=== PATIENT | male | born 1975 | race Two or more races ===

== ENCOUNTER → 2020-06-27 14:58 | Outpatient (BNVA) | payer MEDICARE, SELFPAY | PROVIDERS: PCP Internal Medicine; Visit Provider Nurse Practitioner Family | DX: Z13.89 Encounter for screening for other disorder (principal) | CPT/HCPCS: Q3014 ==

== ENCOUNTER → 2020-07-28 14:26 | Outpatient (BNVA) | payer MEDICARE, SELFPAY | PROVIDERS: PCP Internal Medicine; Visit Provider Nurse Practitioner Family | DX: Z13.89 Encounter for screening for other disorder (principal) | CPT/HCPCS: Q3014 ==

== ENCOUNTER → 2020-08-30 12:51 | Outpatient (BNVA) | payer MEDICARE, SELFPAY | PROVIDERS: Visit Provider Nurse Practitioner Family | DX: Z13.89 Encounter for screening for other disorder (principal) | CPT/HCPCS: Q3014 ==

== ENCOUNTER → 2020-10-31 12:53 | Outpatient (BNVA) | payer MEDICARE, MEDICAID, SELFPAY | PROVIDERS: PCP Internal Medicine; Visit Provider Nurse Practitioner Family | CPT/HCPCS: Q3014 ==

== ENCOUNTER 2020-11-23 11:29 | Outpatient (REF) | payer MEDICARE, MEDICAID, SELFPAY ==
[2020-11-23 12:45] LABS: Hemoglobin 17.5 g/dl (14.0-18.0); Mean Corpuscular HGB Conc 33.7 g/dl (31.0-36.0); Mean Corpuscular Hemoglobin 28.9 pg (27.0-33.0); Mean Corpuscular Volume 85.8 fL (80-98); Mean Platelet Volume 9.7 fL (9.4-12.4); Platelet Count 258 X10*3/uL (160-400); Red Blood Count 6.06 X10*6/uL (4.60-5.80); White Blood Count 5.9 X10*3/uL (4.8-10.8)
[2020-11-23 13:31] LABS: Alanine Aminotransferase 43 U/L (0-40); Albumin Level 4.6 g/dL (3.5-5.0); Alkaline Phosphatase 93 U/L (39-117); Anion Gap 13 (12-20); Aspartate Amino Transferase 24 U/L (5-37); Bilirubin Total 1.8 mg/dL (0.0-1.0); Blood Urea Nitrogen 13 mg/dL (9-16); Calcium 9.7 mg/dL (8.4-10.2); Carbon Dioxide 26 mmol/L (22-29); Chloride 106 mmol/L (96-108); Cholesterol 234 mg/dL; Estimated Glomerular Filt Rate > 60; Glucose Random 90 mg/dL (60-115); HDL Cholesterol 35 mg/dL; LDL Cholesterol Calculated 144 mg/dl; Potassium 4.1 mmol/L (3.3-5.1); Sodium 141 mmol/L (135-145); Total Protein 7.4 g/dL (6.5-8.0); Triglycerides 275 mg/dL
== END 2020-11-23 11:30 | disposition home or self-care (01) ==
LOC: HO.LAB 11:29
PROVIDERS: PCP Internal Medicine; Visit Provider Nurse Practitioner Family
DX: K21.9 Gastro-esophageal reflux disease without esophagitis (principal); I25.10 Atherosclerotic heart disease of native coronary artery without angina pectoris
CPT/HCPCS: 36415; 80053; 80061; 85027

== ENCOUNTER → 2020-12-20 14:41 | Outpatient (BNVA) | payer MEDICARE, MEDICAID, SELFPAY | PROVIDERS: PCP Internal Medicine; Referring Provider Internal Medicine; Visit Provider Internal Medicine | DX: R07.2 Precordial pain (principal); R94.31 Abnormal electrocardiogram [ECG] [EKG] | CPT/HCPCS: 93005; 99202 ==

== ENCOUNTER → 2020-12-27 10:57 | Outpatient (REF) | payer MEDICARE, MEDICAID, SELFPAY ==
--- NOTE | 2020-12-27 11:02 | CA_ITS ---
Acquisition Time: 2020-12-27 11:05:25 Total Exercise Time: 00:11:53 Test Indications: CP, ABN EKG Medications: SEE CHART Protocol: PRO Max HR: 166 BPM 94% of Pred: 176 BPM Max BP: 152/084 mmHG Max Work Load: 13.4 METS Exercise stress test with exercise 11 min 53 sec of Pro protocol, without anginal symptoms, with isolated PVC, with normotensive response to exercise, with nondiagnostic EKG for ischemia due to baseline abnormality. Echo images obtained by tech at rest and immediately post peak exercise, Definity contrast used. Test reviewed with Dr Coates. Referred By: Ever Coates Overread By: MARYELLEN HUITRON
== END ==
LOC: HO.CARD 10:57
PROVIDERS: Visit Provider Internal Medicine
DX: R07.2 Precordial pain (principal)
CPT/HCPCS: 93350; Q9957

== ENCOUNTER → 2021-02-27 13:55 | Outpatient (REF) | payer MEDICARE, MEDICAID, SELFPAY ==
--- NOTE | 2021-02-27 14:00 | CA_ITS ---
Transthoracic Echocardiogram Patient (Last, First, Middle): Trav Jones, Gender: Male Date of : 1975 Age: 45 Procedure Date: 02/27/2021 Procedure Type: Transthoracic Echocardiogram Location: OP Height: 175.26 cm Weight: 92.99 kg BSA: 2.09 m2 Heart Rate: bpm BP: 123 / 80 mmHg Flat Examiner: VH/CP Referring MD: Ever Coates MD Symptoms: R07.2 - Precordial pain Study Quality: Good ECG Rhythm: Sinus Conclusions: - The left ventricular systolic function is normal. The visually estimated ejection fraction is between 55-60%. - No obvious valvular pathology seen on this study. Findings Left Ventricle Normal left ventricular cavity size. There is normal left ventricular wall thickness. The left ventricular systolic function is normal. The visually estimated ejection fraction is between 55-60%. There is no evidence of regional wall motion abnormalities. Diastolic function is normal for age. E/E prime ratio is <8, consistent with normal filling pressures. Right Ventricle Normal right ventricular cavity size and systolic function. Atria Both atria are normal in size. There is lipomatous hypertrophy of the interatrial septum. Aortic Valve Normal aortic valve structure and function. There is no aortic valve stenosis. There is no aortic valve regurgitation. Mitral Valve The mitral valve appears normal. There is trace mitral valve regurgitation. There is no mitral valve stenosis. Pulmonic Valve The pulmonic valve was not well visualized. There is no pulmonic valve regurgitation. Tricuspid Valve Normal tricuspid valve structure. There is trace tricuspid valve regurgitation. The pulmonary artery systolic pressure is normal. Great Vessels The aortic annulus, sinuses of valsalva, and asc aorta are normal in size. Venous The inferior vena cava is normal in size and collapses greater than 50% with inspiration. Pericardium/Pleural There is no evidence of pericardial effusion. Prior Study Comparison No prior study available for comparison. Recommendations, Care & Conclusions No obvious valvular pathology seen on this study. Measurements 2D Linear Measurements IVSd: 0.92 0.6-0.9/0.6-1.0 cm LVIDd: 5.41 3.9-5.3/4.2-5.9 cm LVIDd Index: 2.59 2.4-3.2/2.2-3.1 cm/m2 LVIDs: 3.74 2.0-3.6 cm LVPWd: 0.86 0.7-1.1 cm Ao Root: 3.50 2.1-3.5 cm LA Diam: 3.80 2.7-3.8/3.0-4.0 cm LAIDs Index: 1.82 1.5-2.3 cm/m2 LV Mass: 221.57 67-162/88-224 g LV Mass Index: 106.01 43-95/49-115 g/m2 LVOT Diam: 2.10 3.0+(-)1.3 cm Mitral Valve MV Pk E: 0.66 MV PK A: 0.72 MV Decel Time: 234.00 E/A: 0.90 E'Lateral: 12.00 E'Medial: 9.46 E/E' Med: 7.00 E/E' Lat: 5.50 PHT: 69.00 MVA PHT: 3.19 Decel Norman: 2.84 Aortic Valve AoV Pk Magdaleno: 1.38 AoV Mn Magdaleno: 0.99 AoV VTI: 0.26 AoV Pk Grad: 8.00 Aov Mn Grad: 4.00 SUNDAR Cont.VTI: 2.76 LVOT LVOT Pk Magdaleno: 1.11 LVOT Mn Magdaleno: 0.76 LVOT VTI: 0.21 LVOT Pk Grad: 5.00 LVOT Mn Grad: 3.00 LVOT Diam: 2.10 LVOT Area: 3.46 Diastolic Function MV Pk E: 0.66 MV Pk A: 0.72 E/A: 0.90 E'Medial: 9.46 E/E' Med: 7.00 E' Laterial: 12.00 E/E' Lat: 5.50 Right Ventricle TAPSE (mm): 26.70 TVS' Magdaleno: 13.60 Tricuspid Valve TR Pk Magdaleno: 1.78 TR Pk Grad: 13.00 RA Press: 3.00 RVSP: 16.00 Great Vessels Aorta Ao Root-2D: 3.50 2.0-3.7 cm Ao Asc: 3.40 2.1-3.4 cm Ao Arch: 2.90 Updated in Other Vendor System with Status of Final Ever Coates MD electronically signed on 02/28/2021 4:21:17 PM with status of Final
== END ==
LOC: HO.CARD 13:55
PROVIDERS: Visit Provider Internal Medicine
DX: R07.2 Precordial pain (principal)
CPT/HCPCS: 93306

== ENCOUNTER → 2021-03-07 13:02 | Outpatient (BNVA) | payer MEDICARE, MEDICAID, SELFPAY | PROVIDERS: PCP Internal Medicine; Referring Provider Internal Medicine; Visit Provider Nurse Practitioner Family | DX: K94.31 Esophagostomy hemorrhage (principal); R07.2 Precordial pain; K21.9 Gastro-esophageal reflux disease without esophagitis | CPT/HCPCS: 93005; 99212; Q3014 ==

== ENCOUNTER 2021-05-31 10:06 | Outpatient (REF) | payer MEDICARE, MEDICAID, SELFPAY ==
[2021-05-31 10:28] LABS: MANUAL DIFF FLAG NO
[2021-05-31 11:14] LABS: Basophils Percent Auto 0.3 % (0-2); Eosinophils Absolute Auto 0.2 X10*3/uL (0.0-0.4); Eosinophils Percent Auto 2.6 % (0-4); Hematocrit 52.6 % (42.0-52.0); Hemoglobin 17.3 g/dl (14.0-18.0); Imm Gran Abs Auto 0.01 X10*3/uL (0.00-0.03); Imm Gran Pct Auto 0.2 % (0.0-0.4); Lymphocytes Absolute Auto 1.6 X10*3/uL (1.2-4.9); Lymphocytes Percent Auto 26.8 % (20-40); Mean Corpuscular HGB Conc 32.9 g/dl (31.0-36.0); Mean Corpuscular Hemoglobin 28.6 pg (27.0-33.0); Mean Corpuscular Volume 87.1 fL (80.0-98.0); Monocytes Absolute Auto 0.3 X10*3/uL (0.1-1.2); Monocytes Percent Auto 4.6 % (2-11); Neutrophils Percent Auto 65.5 % (45-73); Platelet Count 249 X10*3/uL (160-400); Red Blood Count 6.04 X10*6/uL (4.60-5.80); Red Cell Distribution Width 11.8 % (11.0-16.0); White Blood Count 6.1 X10*3/uL (4.8-10.8)
[2021-05-31 11:31] LABS: Estimated Average Glucose 108 mg/dL; Hemoglobin A1c % 5.4 %
[2021-05-31 11:52] LABS: Alanine Aminotransferase 31 U/L (0-40); Albumin Level 4.4 g/dL (3.5-5.0); Alkaline Phosphatase 93 U/L (39-117); Anion Gap 11 (12-20); Aspartate Amino Transferase 33 U/L (5-37); Bilirubin Direct 0.4 mg/dL (0.0-0.5); Bilirubin Total 1.5 mg/dL (0.0-1.0); Blood Urea Nitrogen 16 mg/dL (9-16); Calcium 9.7 mg/dL (8.4-10.2); Carbon Dioxide 28 mmol/L (22-29); Chloride 106 mmol/L (96-108); Cholesterol 218 mg/dL; Estimated Glomerular Filt Rate > 60; Glucose Fasting 105 mg/dL (60-99); HDL Cholesterol 31 mg/dL; LDL Cholesterol Calculated 152 mg/dl; Potassium 4.3 mmol/L (3.3-5.1); Sodium 141 mmol/L (135-145); Total Protein 7.2 g/dL (6.5-8.0); Triglycerides 177 mg/dL
[2021-05-31 12:09] LABS: Free T4 (Free Thyroxine) 0.89 ng/dL (0.71-1.85); Thyroid Stimulating Hormone 1.23 uIU/mL (0.32-4.0); Valproate < 2.0 mcg/mL (50.0-100.0)
== END 2021-05-31 10:07 | disposition home or self-care (01) ==
LOC: HO.LAB 10:06
PROVIDERS: PCP Internal Medicine; Visit Provider Clinical Nurse Specialist Psychiatric/Mental Health, Child & Adolescent
DX: Z51.81 Encounter for therapeutic drug level monitoring (principal); Z79.899 Other long term (current) drug therapy
CPT/HCPCS: 36415; 80048; 80061; 80076; 80164; 83036; 84439; 84443; 85025

== ENCOUNTER 2022-05-07 15:48 | Outpatient (REF) | payer MEDICARE, MEDICAID, SELFPAY ==
--- NOTE | ~2022-05-07 | XR_ITS ---
EXAMINATION: XR HAND, LEFT XR HAND, RIGHT CLINICAL INFORMATION: Bilateral hand pain COMPARISON: None TECHNIQUE: 3 views of the left hand. 3 views of the right hand. FINDINGS: Left hand: No fracture or dislocation. Appropriate alignment. Small osteophytes at the interphalangeal joints. No osseous erosion. Soft tissues are unremarkable. Right hand: No fracture or dislocation. Appropriate alignment. Small osteophytes throughout the interphalangeal joints. There may be early erosion of the head of the third digit proximal phalanx at the ulnar aspect.. The soft tissues are unremarkable. XR/XR hand RT min 3V IMPRESSION: Mild degenerative changes of both hands. Possible early erosion at the head of the third digit proximal phalanx on the right hand. No osseous erosion on the left.
--- NOTE | ~2022-05-07 | XR_ITS ---
EXAMINATION: XR HAND, LEFT XR HAND, RIGHT CLINICAL INFORMATION: Bilateral hand pain COMPARISON: None TECHNIQUE: 3 views of the left hand. 3 views of the right hand. FINDINGS: Left hand: No fracture or dislocation. Appropriate alignment. Small osteophytes at the interphalangeal joints. No osseous erosion. Soft tissues are unremarkable. Right hand: No fracture or dislocation. Appropriate alignment. Small osteophytes throughout the interphalangeal joints. There may be early erosion of the head of the third digit proximal phalanx at the ulnar aspect.. The soft tissues are unremarkable. XR/XR hand LT min 3V IMPRESSION: Mild degenerative changes of both hands. Possible early erosion at the head of the third digit proximal phalanx on the right hand. No osseous erosion on the left.
== END 2022-05-07 15:49 | disposition home or self-care (01) ==
LOC: HO.XRAY 15:48
PROVIDERS: Absent Provider Internal Medicine; PCP Internal Medicine; Visit Provider General Practice
DX: M79.641 Pain in right hand (principal); M79.642 Pain in left hand
CPT/HCPCS: 73130

== ENCOUNTER 2022-08-16 15:28 | Outpatient (REF) | payer MEDICARE, MEDICAID, SELFPAY ==
--- NOTE | ~2022-08-16 | XR_ITS ---
EXAMINATION: Bilateral shoulder x-ray CLINICAL INFORMATION: Pain COMPARISON: None. TECHNIQUE: 4 views of each shoulder FINDINGS: Right: Bone alignment is normal. No fracture or dislocation. Mild osteoarthritis at the acromioclavicular joint. Normal glenohumeral joint. Normal soft tissues. Left: Bone alignment is normal. No fracture or dislocation. The joint spaces are normal. Soft tissues are normal. 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
--- NOTE | ~2022-08-16 | XR_ITS ---
EXAMINATION: Bilateral shoulder x-ray CLINICAL INFORMATION: Pain COMPARISON: None. TECHNIQUE: 4 views of each shoulder FINDINGS: Right: Bone alignment is normal. No fracture or dislocation. Mild osteoarthritis at the acromioclavicular joint. Normal glenohumeral joint. Normal soft tissues. Left: Bone alignment is normal. No fracture or dislocation. The joint spaces are normal. Soft tissues are normal. 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
== END 2022-08-16 15:29 | disposition home or self-care (01) ==
LOC: HO.HHCX 15:28
PROVIDERS: Visit Provider Internal Medicine
DX: M25.511 Pain in right shoulder (principal); M25.512 Pain in left shoulder; G89.29 Other chronic pain
CPT/HCPCS: 73030

== ENCOUNTER → 2022-10-03 13:54 | Outpatient (BNVA) | payer MEDICARE, MEDICAID, SELFPAY | PROVIDERS: Visit Provider Orthopaedic Surgery | DX: M65.341 Trigger finger, right ring finger (principal) | CPT/HCPCS: 99202; J1100 ==

== ENCOUNTER 2022-11-21 08:45 | Outpatient (REF) | payer MEDICARE, MEDICAID, SELFPAY ==
--- NOTE | 2022-11-21 08:51 | EMG_ITS ---
Please see scanned EMG / Nerve Conduction Report. MTDD
== END 2022-11-21 08:46 | disposition home or self-care (01) ==
LOC: HO.NEURO 08:45
PROVIDERS: PCP Internal Medicine; Visit Provider Orthopaedic Surgery
DX: R20.0 Anesthesia of skin (principal); R20.2 Paresthesia of skin
CPT/HCPCS: 95885; 95908

== ENCOUNTER 2023-02-12 14:52 | Outpatient (AMB) | payer MEDICARE, MEDICAID, SELFPAY ==
--- NOTE | 2023-02-12 14:59 | MHC.OFFVIS ---
Intake Vital Signs 02/12/23 15:14 Height 5 ft 8 in Weight 207 lb BMI 31.5 Intake Visit Reasons: OV-B/L hand EMG Review Intake Note: Trav 47 yr old male present today for his EMG review and to discuss surgical intervention for his trigger ring finger s/p injection from 10/13/22. States injection did not help. Allergies No Known Allergies Allergy (Verified 02/12/23 15:14) HPI OV-B/L hand EMG Review HPI Details The patient is a 47-year-old [id number]-sqmungiw man on disability following an electrocution injury in [place] few years ago. He was seen in September for a right ring finger trigger finger and had an injection. He still having trouble with locking and catching and would like to discuss surgical options. He also recently had an EMG nerve conduction study, but reports that the numbness and tingling in his hands is only occasional and he is not interested in surgery. [facility] Medical History (Updated 02/12/23 @ 16:02 by Alisson Cazares MD) History of high blood pressure GERD (gastroesophageal reflux disease) Kidney stones Family History Mother Skin cancer Father HTN (hypertension) CAD (coronary artery disease) Social History Household Members: Spouse, Family and Children Alcohol intake: never Patient Tobacco Use Status: Never used Tobacco Current occupational status: disabled Current occupation: right hand dominant Physical Exam Vital Signs: BMI result Body Mass Index 31.5 Extrem Other: The patient was alert oriented and in no acute distress. He can make a fist and extend all his digits. He had visible palpable locking and catching of the right ring finger with tenderness over the A1 ese. Sensation was intact to normal to all digits. No intrinsic or thenar wasting. Assessment & Plan Assessment & Plan (1) Trigger finger, right ring finger: Code(s): M65.341 - Trigger finger, right ring finger (2) Carpal tunnel syndrome, bilateral: Code(s): G56.03 - Carpal tunnel syndrome, bilateral upper limbs Plan Assessment and plan: 1. Right ring finger trigger finger Persistent, following steroid injection on 10/03/2022 I educated the patient about this condition Discussed operative and non operative treatment options. He is interested in surgery. The risks and benefits of operative treatment were discussed with the patient and the patient wishes to proceed with surgery. These risks include, but are not limited to risk of damage to blood vessels, nerves, tendons, infection, recurrence, incomplete relief of preoperative symptoms, persistent pain, possible need for further surgery and the risks associated with regional blocks and anesthesia. The plan is to take the patient to the operating room sometime in the next couple months for the following procedures: 1. Right ring finger trigger release under local 2. [ ] All of the preoperative paperwork including the consent was filled out today. All the patient's questions were answered. The patient understands that they will be contacted by our mechanical engineering officer soon to schedule this procedure 2. Right carpal tunnel syndrome, mild Symptoms intermittent but occasional 3. Left carpal tunnel syndrome, mild Symptoms intermittent but occasional I educated the patient about carpal tunnel syndrome at length. He is not interested in surgery. He does understand that he should seek treatment for this condition once the numbness and tingling gets to a point where it is intermittent and just about daily. Understands that waiting until it is constantly numb is really too long and may risk permanent nerve damage. Coding Level of Care Code Est Pt Level 4 (62760) Diagnoses Trigger finger, right ring finger M65.341 Carpal tunnel syndrome, bilateral G56.03
[2023-02-12 15:14] VITALS: BMI 31.5
== END 2023-02-12 15:31 | disposition home or self-care (01) ==
PROVIDERS: PCP Internal Medicine; Visit Provider Orthopaedic Surgery
DX: M65.341 Trigger finger, right ring finger (principal); G56.03 Carpal tunnel syndrome, bilateral upper limbs
CPT/HCPCS: 99214

== ENCOUNTER → 2023-02-12 14:52 | Outpatient (BNVA) | payer MEDICARE, MEDICAID, SELFPAY | PROVIDERS: PCP Internal Medicine; Visit Provider Orthopaedic Surgery | DX: M65.341 Trigger finger, right ring finger (principal); G56.03 Carpal tunnel syndrome, bilateral upper limbs | CPT/HCPCS: 99212 ==

== ENCOUNTER 2023-05-06 10:20 | Day surgery (SDC) | payer MEDICARE, MEDICAID, SELFPAY ==
[2023-05-06 10:30] VITALS: BMI 30.9
--- NOTE | 2023-05-06 14:12 | MHC.SHP ---
Pre-Procedural Eval Section A - 24 Hr Update-Section A only Date of Service: 05/06/23 The patient is an INPATIENT: No Changes since office visit: No Cold of Flu in the past 2 weeks, No New Medical Problems, No Changes in Medication and No Patient answered all questions The patient has been examined within 24 hours of the surgical procedure. The History & Physical has been completed within 30 days and I have reviewed it.: Yes Section B - Complete if H&P > 30 days Chief Complaint: Trigger finger, right ring finger Allergies: Allergies Allergy/AdvReac Type Severity Reaction Status Date / Time No Known Allergies Allergy Verified 05/06/23 10:39 Plan I have reviewed the history and physical and performed a pertinent physical examination on my patient. No changes have occurred unless specified. Time Spent With Patient Time: Total time managing care of this patient today ____ minutes.
--- NOTE | 2023-05-06 14:12 | W.PM.OPN ---
Operative Note Operative Note Date of Service: 05/06/23 Narrative: Operative Note Preop diagnosis: 1. Right ring finger Trigger finger Postop diagnosis: 1. Right ring finger Trigger finger Procedure: 1. Right ring finger A1 ese release Surgeon: Alisson Cazares MD Anesthesia: local block using 1% lidocaine with epinephrine Findings: No locking or catching after A1 ese release EBL: Less than 5 mL Tourniquet time: None Specimens: None Complications: None Disposition: Brought to recovery room in stable condition Plan: Follow-up for 10-14 days for wound check and suture removal Indications: The patient is 47 years old, with a right ring finger trigger finger that has been unresponsive to nonoperative management. The risks and benefits of operative treatment including but not limited to risk of damage to blood vessels, nerves, tendons, infection, persistent pain, persistent symptoms, recurrence or possible need for additional surgery were discussed with the patient and the patient wishes to proceed with surgery. Procedure: Once consent was obtained a local block was performed in the preop area using a combination of 1% lidocaine with epinephrine. The patient was then brought back to the operating suite and placed on the operative table in supine position. The right upper extremity was prepped and draped in a standard surgical fashion. Once assured that we had a good block, a 1.5 cm oblique incision was made centered over the A1 ese of the right ring finger . The incision was made through the skin to the subcutaneous tissues using a #15 blade. Careful dissection was made down to the level of the A1 ese using tenotomy scissors, with care being taken to protect the nearby neurovascular structures. A longitudinal incision was made in the A1 ese 1st using a #15 blade, then using tenotomy scissors under direct visualization. The A1 ese was noted to be thickened. Following our A1 ese release, we no longer saw any locking or catching of the digit with flexion and extension. Once satisfied with our A1 ese release the wound was copiously irrigated with normal saline and hemostasis was obtained with a brief period of local pressure. The skin edges were reapproximated with some 5.0 nylon suture material and a sterile dressing was applied. The patient appears to have tolerated the procedure well and with no complications. All digits were well vascularized at the conclusion of the case.
[2023-05-06 14:54] VITALS: BP 145/88; PULSE 70; RESP 16; O2SAT 98
== END 2023-05-06 14:57 | disposition home or self-care (01) ==
PROVIDERS: PCP Internal Medicine; Visit Provider Orthopaedic Surgery
PROC: (CPT 26055; principal; 2023-05-06 12:00)
DX: M65.341 Trigger finger, right ring finger (principal); I10 Essential (primary) hypertension; K21.9 Gastro-esophageal reflux disease without esophagitis; Z87.891 Personal history of nicotine dependence
CPT/HCPCS: 26055; J0171; J2795

== ENCOUNTER → 2023-05-06 10:20 | Outpatient (BNV) | payer MEDICARE, MEDICAID, SELFPAY | PROVIDERS: PCP Internal Medicine; Visit Provider Orthopaedic Surgery | DX: M65.341 Trigger finger, right ring finger (principal) | CPT/HCPCS: 26055 ==

== ENCOUNTER 2023-05-17 14:53 | Outpatient (AMB) | payer MEDICARE, MEDICAID, SELFPAY ==
--- NOTE | 2023-05-17 14:57 | MHC.OFFVIS ---
Intake Intake Visit Reasons: PO Rt RF trigger 05/06/23 AR Intake Note: Trav is a 47 year old right hand dominant male who presents today for a post op appointment s/p Rt RF trigger 05/06/23 AR. Patient reports her is doing well, he states that he is having pain on his RF. Allergies No Known Allergies Allergy (Verified 05/17/23 14:58) HPI PO Rt RF trigger 05/06/23 AR HPI Details 47-year-old male, who is Bulgarian speaking, presents in the office today for 11 days status post right ring finger A1 ese release, which was performed on 05/06/[address] Cazares. The patient reports he is doing well, but does report pain in the right ring finger. [facility] Medical History (Updated 02/12/23 @ 16:02 by Alisson Cazares MD) History of high blood pressure GERD (gastroesophageal reflux disease) Kidney stones Family History Mother Skin cancer Father HTN (hypertension) CAD (coronary artery disease) Social History (Reviewed 02/12/23 @ 15:14 by Marylin Whitehead [facility]) Household Members: Spouse, Family and Children Alcohol intake: never Patient Tobacco Use Status: Never used Tobacco Current occupational status: disabled Current occupation: right hand dominant Review of Systems Const All systems reviewed & are unremarkable except as noted in HPI and below Physical Exam Const General: cooperative, healthy appearing and no acute distress Resp Effort & Inspection: normal respiratory effort and able to speak in complete sentences Cardio Rate: regular rate Peripheral pulses: Peripheral pulses 2+ throughout GI Palpation (GI): Soft to palpation Skin Lesions: no lesions Rashes: no rashes Extrem Other: Right ring finger: Incision site is clean, dry, and intact. Sutures intact. No surrounding erythema or drainage. No signs of infection. Able to make a closed fist and fully extend. Reports some stiffness on the dorsal aspect of the ring finger. Sensation intact. Capillary refill is brisk. Assessment & Plan Assessment & Plan (1) Trigger finger, right ring finger: Code(s): M65.341 - Trigger finger, right ring finger (2) Carpal tunnel syndrome, bilateral: Code(s): G56.03 - Carpal tunnel syndrome, bilateral upper limbs Plan Mr. Turner is a 47-year-old male, who is Bulgarian speaking, presents in the office today for 11 days status post right ring finger A1 ese release, which was performed on 05/06/[address] Cazares. The patient reports he is doing well, but does report pain in the right ring finger. Sutures were removed and steri-stripes were applied. I worked with the patient on exercises to help with ROM and stiffness. The patient will continue to work on these exercises at home. By the end of today?s visit we were able to get his fingers all the way down to make a closed fist. Therefore, occupational therapy was deferred at this time with instructions that if he should not make any progress with his motion or stiffness he will call the office and I will place an order for occupational therapy at that time. Follow up will be PRN, or sooner if needed. Patient Instructions: Scribed by Abby Soler, certified medical assistant, for Silva Garay PA-C on 05/17/2023 at 3:08 pm, EST. Coding Level of Care Code Global (19257) Diagnoses Trigger finger, right ring finger M65.341 Carpal tunnel syndrome, bilateral G56.03
== END 2023-05-17 15:27 | disposition home or self-care (01) ==
PROVIDERS: PCP Internal Medicine; Visit Provider Physician Assistant
DX: M65.341 Trigger finger, right ring finger (principal); G56.03 Carpal tunnel syndrome, bilateral upper limbs
CPT/HCPCS: 99024

== ENCOUNTER → 2023-05-17 14:53 | Outpatient (BNVA) | payer MEDICARE, MEDICAID, SELFPAY | PROVIDERS: PCP Internal Medicine; Visit Provider Physician Assistant | DX: M65.341 Trigger finger, right ring finger (principal); G56.03 Carpal tunnel syndrome, bilateral upper limbs | CPT/HCPCS: 99212 ==

== ENCOUNTER 2023-08-07 16:03 | Outpatient (REF) | payer MEDICARE, MEDICAID, SELFPAY ==
[2023-08-07 18:01] LABS: MANUAL DIFF FLAG NO
[2023-08-07 18:07] LABS: Basophils Percent Auto 0.5 % (0-2); Eosinophils Absolute Auto 0.2 X10*3/uL (0.0-0.4); Eosinophils Percent Auto 3.1 % (0-4); Hematocrit 50.7 % (42.0-52.0); Hemoglobin 17.7 g/dl (14.0-18.0); Imm Gran Abs Auto 0.02 X10*3/uL (0.00-0.03); Imm Gran Pct Auto 0.4 % (0.0-0.4); Lymphocytes Absolute Auto 1.8 X10*3/uL (1.2-4.9); Lymphocytes Percent Auto 32.4 % (20-40); Mean Corpuscular HGB Conc 34.9 g/dl (31.0-36.0); Mean Corpuscular Hemoglobin 29.6 pg (27.0-33.0); Mean Corpuscular Volume 84.9 fL (80.0-98.0); Mean Platelet Volume 9.8 fL (9.4-12.4); Monocytes Absolute Auto 0.3 X10*3/uL (0.1-1.2); Monocytes Percent Auto 5.4 % (2-11); Neutrophils Absolute Auto 3.2 x10*3/uL (2.0-8.3); Neutrophils Percent Auto 58.2 % (45-73); Platelet Count 244 X10*3/uL (160-400); Red Blood Count 5.97 X10*6/uL (4.60-5.80); Red Cell Distribution Width 11.8 % (11.0-16.0); White Blood Count 5.6 X10*3/uL (4.8-10.8)
[2023-08-07 18:19] LABS: Alanine Aminotransferase 24 U/L (0-40); Albumin Level 4.5 g/dL (3.5-5.0); Alkaline Phosphatase 83 U/L (39-117); Anion Gap 15 (12-20); Aspartate Amino Transferase 20 U/L (5-37); Bilirubin Direct 0.4 mg/dL (0.0-0.5); Bilirubin Total 1.4 mg/dL (0.0-1.0); Blood Urea Nitrogen 14 mg/dL (9-16); Calcium 9.5 mg/dL (8.4-10.2); Carbon Dioxide 25 mmol/L (22-29); Chloride 105 mmol/L (96-108); Cholesterol 212 mg/dL (<200); Estimated Glomerular Filt Rate > 60; Glucose Random 93 mg/dL (60-115); HDL Cholesterol 36 mg/dL (>40); LDL Cholesterol Calculated 137 mg/dL (<100); Potassium 3.7 mmol/L (3.3-5.1); Sodium 141 mmol/L (135-145); Total Protein 7.5 g/dL (6.5-8.0); Triglycerides 199 mg/dL (<150)
[2023-08-08 04:35] LABS: ~HepC Num1 0.15 S/CO (0.00-0.79); ~Hepatitis C Antibody Nonreactive (Nonreactive)
== END 2023-08-07 16:04 | disposition home or self-care (01) ==
LOC: HO.HHCL 16:03
PROVIDERS: Visit Provider Internal Medicine
DX: I10 Essential (primary) hypertension (principal); N20.0 Calculus of kidney
CPT/HCPCS: 36415; 80048; 80061; 80076; 85025; 86803